=== PATIENT | male | born 1975 ===

== ENCOUNTER 2018-04-11 06:33 | Day surgery (SDC) | payer OTHER ==
[2018-04-11] MEDS ORDERED: NEURONTIN300 MG PO (11:24)
[2018-04-11] MEDS ORDERED: POLY119PG PO (11:24)
[2018-04-11] MEDS ORDERED: PERCOCET 5-3251 EACH PO (11:24)
== END 2018-04-11 13:05 | disposition home or self-care (01) ==
LOC: CIR.AMB 06:33
DX: K40.30 Unilateral inguinal hernia, with obstruction, without gangrene, not specified as recurrent (principal)